=== PATIENT | female | born 1995 | race African-American/Black ===

== ENCOUNTER 2020-09-24 21:29 | Inpatient (IN) | payer MEDICAID, OTHER ==
[~2020-09-24] VITALS: Ht 167.6 cm; Wt 95.3 kg
[2020-09-24] MEDS ORDERED: hydrALAZINE HCL 20 MG/ML VL IV ONE (22:00)
[2020-09-24 23:57] LABS: Basophils # (auto) 0.1 10 ^3/uL (0-0.2); Eosinophils # (auto) 0.2 10 ^3/uL (0-0.8); Eosinophils % (auto) 2.8 % (0.0-7.0); Hematocrit 38.9 % (36.0-46.0); Hemoglobin 13.1 g/dL (12.2-16.2); Lymphocytes % (auto) 36.7 % (10.0-50.0); Mean Corpuscular Hemoglobin 30.5 pg (28.0-32.0); Mean Corpuscular Hgb Conc. 33.6 g/dL (32.0-36.0); Mean Corpuscular Volume 90.7 fL (80.0-100.0); Monocytes # (auto) 0.5 10 ^3/uL (0-1.3); Monocytes % (auto) 6.3 % (0.0-12.0); Neutrophils # (auto) 4.3 10 ^3/uL (1.6-8.6); Neutrophils % (auto) 53.2 % (37.0-80.0); Nucleated Red Blood Cells % 0.2 %; Red Blood Cells 4.29 10^6/uL (4.0-5.20); Red Cell Distribution Width 14.3 % (11.8-14.3)
[2020-09-25] VITALS (13 sets, daily range): BP systolic 112–145; BP diastolic 62–94
[2020-09-25 00:04] LABS: Albumin 3.9 g/dL (3.4-5.0); Calcium 9.4 mg/dL (8.5-10.1); Potassium 3.7 mmol/L (3.5-5.1)
[2020-09-25 00:05] LABS: INR 0.97 (0.9-1.15)
[2020-09-25 00:07] LABS: BUN/Creatinine Ratio 24.1; Bilirubin, Total 0.4 mg/dL (0.2-1.0); Total Protein 8.2 g/dL (6.4-8.2)
[2020-09-25 00:30] LABS: Urine Bacteria NONE SEEN /hpf (None Seen); Urine Blood 3+ /uL (Negative); Urine Specific Gravity 1.023 (1.001-1.035); Urine WBC 264 /hpf (0 - 5); Urine WBC Clumps PRESENT /hpf (None Seen)
[2020-09-25] MEDS ORDERED: MAGNESIUM SULFATE 1GM/100ML 100 ML IV STA (02:21)
[2020-09-25] MEDS ORDERED: cefTRIAXone 1GM/50ML D5W 50 ML IV ONE (02:30)
[2020-09-25 04:18] LABS: INR 0.97 (0.9-1.15); Partial Thromboplastin Time 27.9 sec (23.0-31.2)
[2020-09-25 04:20] LABS: Amphetamine Screen, Urine NEGATIVE (NEGATIVE); Barbiturate Scree,Urine NEGATIVE (NEGATIVE); Benzodiazephine Screen, Urine NEGATIVE (NEGATIVE); Cannabinoid Screen, Urine NEGATIVE (NEGATIVE); Cocaine Screen, Urine NEGATIVE (NEGATIVE); Opiate Scree,Urine NEGATIVE (NEGATIVE); Phencyclidine Screen, Urine NEGATIVE (NEGATIVE)
[2020-09-25] MEDS ORDERED: MAGNESIUM SULFATE 100 ML IV ONE (04:30)
[2020-09-25] MEDS ORDERED: MAGNESIUM SULFATE 40MG/ML 1,000 ML IV SCH (04:30)
[2020-09-25] MEDS ORDERED: hydrALAZINE HCL 20 MG/ML VL IV ONE (04:30)
[2020-09-25] MEDS ORDERED: ONDANSETRON HCL 4 MG/2 ML VIAL IV PRN (04:30)
[2020-09-25] MEDS ORDERED: LORazepam 2MG/ML-1ML VIAL IV PRN (04:30)
[2020-09-25] MEDS: IBUPROFEN 600 MG TAB PO PRN (04:36)
[2020-09-25] MEDS ORDERED: MAGNESIUM SULFATE IV ONE (05:30)
[2020-09-25] MEDS: LACTATED RINGER'S 1,000 ML IV SCH ×2 (05:51→17:31)
[2020-09-25] MEDS: LABETALOL HCL 200 MG TAB PO SCH ×2 (07:34→19:35)
[2020-09-25] MEDS: ACETAMINOPHEN 325 MG TAB PO PRN ×4 (09:06→23:20)
[2020-09-26] MEDS ORDERED: PREN-96 OR (01:19)
[2020-09-26] MEDS ORDERED: NIFE10CA3 PO (01:25)
[2020-09-26 03:00] VITALS: BP 122/66
[2020-09-26 06:49] VITALS: BP 114/66
[2020-09-26] MEDS: LABETALOL HCL 200 MG TAB PO SCH ×2 (07:31→19:30)
[2020-09-26] MEDS: ACETAMINOPHEN 325 MG TAB PO PRN ×2 (07:31→13:40)
[2020-09-26 10:45] VITALS: BP 114/65
[2020-09-26 13:59] LABS: Basophils # (auto) 0.1 10 ^3/uL (0-0.2); Eosinophils # (auto) 0.2 10 ^3/uL (0-0.8); Eosinophils % (auto) 3.8 % (0.0-7.0); Hematocrit 39.3 % (36.0-46.0); Lymphocytes # (auto) 2.4 10 ^3/uL (0.4-5.4); Lymphocytes % (auto) 39.7 % (10.0-50.0); Mean Corpuscular Hgb Conc. 33.2 g/dL (32.0-36.0); Mean Corpuscular Volume 90.5 fL (80.0-100.0); Monocytes # (auto) 0.4 10 ^3/uL (0-1.3); Monocytes % (auto) 6.8 % (0.0-12.0); Neutrophils % (auto) 48.7 % (37.0-80.0); Nucleated Red Blood Cells % 0.1 %; Red Blood Cells 4.34 10^6/uL (4.0-5.20); Red Cell Distribution Width 14.6 % (11.8-14.3); White Blood Cell 6.2 10^3/uL (4.4-10.8)
[2020-09-26 14:11] LABS: Albumin 3.5 g/dL (3.4-5.0); Calcium 8.7 mg/dL (8.5-10.1)
[2020-09-26 14:14] LABS: BUN/Creatinine Ratio 16.3; Bilirubin, Total 0.5 mg/dL (0.2-1.0); Total Protein 8.1 g/dL (6.4-8.2); Uric Acid 5.9 mg/dL (2.6-6.0)
[2020-09-26 14:15] LABS: INR 0.97 (0.9-1.15); Partial Thromboplastin Time 28.2 sec (23.0-31.2)
[2020-09-26 14:53] VITALS: BP 132/81
[2020-09-26] MEDS: IBUPROFEN 600 MG TAB PO PRN (14:58)
[2020-09-26 18:15] LABS: Urine Bacteria NONE SEEN /hpf (None Seen); Urine Blood 3+ /uL (Negative); Urine Mucus FEW (None Seen); Urine Specific Gravity 1.042 (1.001-1.035); Urine WBC 328 /hpf (0 - 5)
[2020-09-26 18:55] VITALS: BP 125/68
[2020-09-26] MEDS ORDERED: LORazepam 2MG/ML-1ML VIAL IV PRN (20:15)
[2020-09-26 23:08] VITALS: BP 133/86
[2020-09-27 03:15] VITALS: BP 114/78
[2020-09-27 06:30] VITALS: BP 134/77
[2020-09-27] MEDS: LABETALOL HCL 200 MG TAB PO SCH (06:44)
[2020-09-27 11:05] VITALS: BP 127/77
[2020-09-27] MEDS ORDERED: LABE200T7 PO (11:31)
== END 2020-09-27 11:57 | disposition home or self-care (01) | DRG 561 ==
LOC: EDBD 21:29 → ER 21:37 → LDRP 09-25 04:57
PROVIDERS: ADMIT Obstetrics & Gynecology; ATTEND Obstetrics & Gynecology
DX: O14.05 Mild to moderate pre-eclampsia, complicating the puerperium (principal); I67.83 Posterior reversible encephalopathy syndrome; O99.355 Diseases of the nervous system complicating the puerperium; Z20.822 Contact with and (suspected) exposure to COVID-19; Z82.49 Family history of ischemic heart disease and other diseases of the circulatory system
CPT/HCPCS: 36415; 70450; 70551; 80053; 80307; 81001; 82570; 83615; 83735; 84156; 84550; 85025; 85610; 85730; 86850; 86900; 86901; 87426; 94760; 96360; 96361; 96365; 96366; 96368; 96375; G0378; J0696

== ENCOUNTER → 2021-03-28 | Outpatient (CLI) | payer MEDICAID ==
[~2021-03-28] MED LIST: LABE200T7 PO; NIFE10CA3 PO; PREN-96 OR
[2021-03-28 12:09] LABS: Basophils # (auto) 0 10 ^3/uL (0-0.2); Basophils % (auto) 0.6 % (0.0-2.0); Eosinophils # (auto) 0.1 10 ^3/uL (0-0.8); Eosinophils % (auto) 2.5 % (0.0-7.0); Hematocrit 39.5 % (36.0-46.0); Hemoglobin 13.3 g/dL (12.2-16.2); Lymphocytes # (auto) 2.3 10 ^3/uL (0.4-5.4); Mean Corpuscular Hemoglobin 31.2 pg (28.0-32.0); Mean Corpuscular Hgb Conc. 33.7 g/dL (32.0-36.0); Mean Corpuscular Volume 92.5 fL (80.0-100.0); Monocytes # (auto) 0.4 10 ^3/uL (0-1.3); Monocytes % (auto) 7.2 % (0.0-12.0); Neutrophils # (auto) 2.5 10 ^3/uL (1.6-8.6); Neutrophils % (auto) 46.7 % (37.0-80.0); Nucleated Red Blood Cells % 0.1 %; Red Blood Cells 4.27 10^6/uL (4.0-5.20); Red Cell Distribution Width 13.1 % (11.8-14.3); White Blood Cell 5.3 10^3/uL (4.4-10.8)
[2021-03-28 12:16] LABS: Partial Thromboplastin Time 29.8 sec (23.6-33.0)
[2021-03-28 12:21] LABS: Urine Bacteria NONE SEEN /hpf (None Seen); Urine Blood 3+ /uL (Negative); Urine Mucus FEW (None Seen); Urine WBC 36 /hpf (0 - 5)
[2021-03-28 12:42] LABS: Potassium 3.6 mmol/L (3.5-5.1)
[2021-03-28 12:49] LABS: Albumin 3.9 g/dL (3.4-5.0); BUN/Creatinine Ratio 14.5; Calcium 9.1 mg/dL (8.5-10.1)
[2021-03-28 12:54] LABS: Bilirubin, Total 0.6 mg/dL (0.2-1.0); Total Protein 8.2 g/dL (6.4-8.2)
== END | disposition home or self-care (01) ==
LOC: LAB 09:47
PROVIDERS: ATTEND Nurse Practitioner Family
DX: Z01.818 Encounter for other preprocedural examination (principal); D50.9 Iron deficiency anemia, unspecified
CPT/HCPCS: 36415; 80053; 81001; 81025; 85025; 85610; 85730; 86703

== ENCOUNTER → 2021-06-28 | Outpatient (CLI) | payer MEDICAID ==
[2021-06-28 10:38] LABS: Basophils # (auto) 0.1 10 ^3/uL (0-0.2); Eosinophils # (auto) 0.1 10 ^3/uL (0-0.8); Eosinophils % (auto) 2.8 % (0.0-7.0); Hematocrit 38.3 % (36.0-46.0); Hemoglobin 13.3 g/dL (12.2-16.2); Lymphocytes # (auto) 2.4 10 ^3/uL (0.4-5.4); Lymphocytes % (auto) 46.2 % (10.0-50.0); Mean Corpuscular Hemoglobin 32.1 pg (28.0-32.0); Mean Corpuscular Hgb Conc. 34.7 g/dL (32.0-36.0); Mean Corpuscular Volume 92.5 fL (80.0-100.0); Monocytes # (auto) 0.4 10 ^3/uL (0-1.3); Monocytes % (auto) 7.8 % (0.0-12.0); Neutrophils # (auto) 2.2 10 ^3/uL (1.6-8.6); Neutrophils % (auto) 42.2 % (37.0-80.0); Nucleated Red Blood Cells % 0.3 %; Red Blood Cells 4.14 10^6/uL (4.0-5.20); Red Cell Distribution Width 13.3 % (11.8-14.3); White Blood Cell 5.2 10^3/uL (4.4-10.8)
[2021-06-28 11:01] LABS: INR 1.05 (0.9-1.15); Partial Thromboplastin Time 28.8 sec (23.6-33.0)
[2021-06-28 11:12] LABS: Albumin 3.8 g/dL (3.4-5.0); Calcium 9.1 mg/dL (8.5-10.1); Potassium 4.1 mmol/L (3.5-5.1)
[2021-06-28 11:17] LABS: BUN/Creatinine Ratio 11.9; Bilirubin, Total 0.6 mg/dL (0.2-1.0); Total Protein 7.6 g/dL (6.4-8.2)
== END | disposition home or self-care (01) ==
LOC: LAB 10:18
PROVIDERS: ATTEND Nurse Practitioner Family
DX: Z01.812 Encounter for preprocedural laboratory examination (principal); D50.9 Iron deficiency anemia, unspecified
CPT/HCPCS: 36415; 80053; 84702; 85025; 85610; 85730; 86703